=== PATIENT | female | born 1990 | race Caucasian/White ===

== ENCOUNTER → 2021-02-01 | Outpatient (CLI) | payer BC ==
[~2021-02-01] MED LIST: WELLBUTRIN XL300 MG PO
== END ==
LOC: MRI 12:49
PROVIDERS: ATTEND Specialist
DX: S89.91XA Unspecified injury of right lower leg, initial encounter (principal); M25.461 Effusion, right knee; X58.XXXA Exposure to other specified factors, initial encounter